=== PATIENT | male | born 1970 | race Hispanic/Latino ===

== ENCOUNTER 2018-09-02 08:07 | Observation (INO) | payer BC ==
[~2018-09-02] VITALS: Ht 180.3 cm; Wt 106.6 kg
--- NOTE | 2018-09-02 08:15 | NUR ---
PT AMBULATORY FROM TRIAGE WITH STEADY GAIT. C/O LEFT ARM NUMBNESS AND PAIN. STATES HAS BEEN INTERMITTENT FOR YEARS. 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 DENIES CHEST PAIN. NO NEUROLOGICAL DEFICITS.
[2018-09-02 09:10] LABS: BASOPHILS % 0.7 % (0.0-1.0); EOSINOPHILS # (AUTO) 0.3 (0.0-0.4); EOSINOPHILS % 4.7 % (0.0-6.0); HEMOGLOBIN 14.8 g/dL (14.0-18.0); LYMPHOCYTES % 33.6 % (18.0-39.1); MEAN CORPUSCULAR HEMOGLOBIN 31.4 pg (28-32); MEAN CORPUSCULAR HGB CONC 36.1 g/dL (31-35); MONOCYTES # (AUTO) 0.8 (0.2-0.8); MONOCYTES % 12.5 % (4.4-11.3); NEUTROPHILS # (AUTO) 2.9 (2.1-6.9); NEUTROPHILS % 48.2 % (38.7-80.0); PLATELET COUNT 180 x10e3/uL (140-360); RED BLOOD COUNT 4.71 x10e6/uL (4.3-5.7); RED CELL DISTRIBUTION WIDTH 12.2 % (11.7-14.4)
[2018-09-02 09:21] LABS: INR 0.81; PARTIAL THROMBOPLASTIN TIME 28.7 seconds (23.8-35.5); PROTHROMBIN TIME 11.6 seconds (11.9-14.5)
[2018-09-02 09:22] LABS: BILIRUBIN,URINE NEGATIVE (NEGATIVE); CLARITY,URINE SL CLOUDY (CLEAR); COLOR,URINE YELLOW (YELLOW); KETONES,URINE NEGATIVE (NEGATIVE); LEUKOCYTE ESTERASE ,URINE NEGATIVE (NEGATIVE); NITRITE,URINE NEGATIVE (NEGATIVE); PROTEIN,URINE DIPSTICK 1+ (NEGATIVE); URINE UROBILINOGEN 0.2 mg/dL (0.2 - 1)
[2018-09-02 09:32] LABS: ALANINE AMINOTRANSFERASE 37 IU/L (0-55); ALBUMIN 3.7 g/dL (3.5-5.0); ALBUMIN/GLOBULIN RATIO 1.2 (0.8-2.0); ALKALINE PHOSPHATASE 102 IU/L (40-150); BLOOD UREA NITROGEN 24 mg/dL (7-26); BUN/CREATININE RATIO 21 (6-25); CALCIUM 9.1 mg/dL (8.4-10.2); CARBON DIOXIDE 22 mmol/L (22-29); CHLORIDE 107 mmol/L (98-107); CREATINE KINASE 517 IU/L (30-200); CREATININE, SERUM 1.15 mg/dL (0.72-1.25); EST GLOMERULAR FILTRATION RATE > 60 ML/MIN (60-); GLUCOSE 121 mg/dL (74-118); SODIUM 137 mmol/L (136-145)
[2018-09-02 09:41] LABS: RBC,URINE 0-5 /HPF (0-5)
[2018-09-02 09:42] LABS: BACTERIA,URINE FEW /HPF; EPITHELIAL CELLS,URINE RARE /LPF
--- NOTE | 2018-09-02 09:48 | Diagnostic Imaging Report ---
EXAM: CHEST SINGLE (PORTABLE), AP Portable DATE: 09/02/2018 Time stamp on exam: 9:09 AM INDICATION: Chest pain with left arm tingling COMPARISON: None FINDINGS: LINES/TUBES: None LUNGS: No consolidations or edema. PLEURA: No effusions or pneumothorax. HEART AND MEDIASTINUM: Normal size and contour. BONES AND SOFT TISSUES: No acute findings. IMPRESSION: No acute thoracic abnormality. Signed by: Dr. Ye Gil DO on 09/02/2018 9:44 AM
--- NOTE | 2018-09-02 09:49 | Diagnostic Imaging Report ---
History: Left arm tingling Comparison studies: None Technique: Axial images were obtained from the skull base to the vertex. Coronal and sagittal reconstructions obtained from the axial data. Dose modulation, iterative reconstruction, and/or weight based adjustment of the mA/kV was utilized to reduce the radiation dose to as low as reasonably achievable. Findings: Scalp/skull: No abnormalities. No fractures, blastic or lytic lesions. Extra-axial spaces: No masses. No fluid collections. Brain sulci: Appropriate for age. Ventricles: Normal in size and configuration. No hydrocephalus. Parenchyma: Few subtle white matter hypodensities right frontal juxtacortical superior frontal gyrus, left corpus callosum anterior body and left splenium, nonspecific. No masses, hemorrhage, acute or chronic cortical vascular insults. Sellar/suprasellar region: No abnormalities Craniocervical junction: Patent foramen magnum. No Chiari one malformation. Atherosclerotic calcifications of the carotid siphons and vertebral arteries IMPRESSION: No acute abnormalities. Few subtle hypodensities of the white matter, nonspecific, could be seen in demyelination or minimal chronic microvascular ischemic changes, MRI of the brain could be helpful for further evaluation. . Signed by: DR Julian Dumont M.D. on 09/02/2018 9:46 AM
[2018-09-02] MEDS ORDERED: ASPIRIN 81 MG CHEW TAB PO ONE (10:21)
--- OUTSIDE RECORDS SUMMARY | 2018-09-02 10:38 | XMS REPORT ---
Author [facility] Address Unknown Phone Unavailable Care Team Providers Care Ash Collector Name Role Phone Castro RIOS Unavailable Unavailable Problems This patient has no known problems. Allergies, Adverse Reactions, Alerts This patient has no known allergies or adverse reactions. Medications This patient has no known medications. Results Test Description Test Time Test Comments Text Results Atomic Results Result Comments CHEST SINGLE (PORTABLE) 2018-09-02 09:43:00 [place] [id number] Patient Name: WILNER LEE MR #: [id number] : 1970 Age/Sex: 47/M Req #: [id number] [facility] Physician: Ordered by: JEWEL RIOS MD Report #: [id number] Location: ER Room/Bed: Procedure: [id number] DX/CHEST SINGLE (PORTABLE) Exam Date: 09/02/18 Exam Time: 909 REPORT STATUS: Signed EXAM: CHEST SINGLE (PORTABLE), AP Portable DATE: Time stamp on exam: 9:09 AM INDICATION: Chest pain with left arm tingling COMPARISON: None FINDINGS: LINES/TUBES: None LUNGS: No consolidations or edema. PLEURA: No effusions or pneumothorax. HEART AND MEDIASTINUM: Normal size and contour. BONES AND SOFT TISSUES: No acute findings. IMPRESSION: No acute thoracic abnormality. Signed by: Dr. Joceline Gil DO on 09/02/2018 9:44 AM Dictated By: JOCELINE GIL DO 3 Transcribed By: DANIEL on 09/02/18943 COPY TO: JEWEL RIOS MD CT BRAIN WO 2018-09-02 09:37:00 [place] [id number] Patient Name: WILNER LEE MR #: [id number] : 1970 Age/Sex: 47/M Req #: [id number] Adm Physician: Ordered by: JEWEL RIOS MD Report #: [id number] Location: ER Room/Bed: Procedure: [id number] CT/CT BRAIN WO Exam Date: 09/02/18 Exam Time: 09 REPORT STATUS: Signed History: Left arm tingling Comparison studies: None Timbo hnique: Axial images were obtained from the skull base to the vertex. Coronal and sagittal reconstructions obtained from the axial data. Dose modulation, iterative reconstruction, and/or weight based adjustment of the mA/kV was utilized to reduce the radiation dose to as low as reasonably achievable. Findings: Scalp/skull: No abnormalities. No fractures, blastic or lytic lesions. Extra-axial spaces: No masses. No fluid collections. Brain sulci: Appropriate for age. Ventricles: Normal in size and configuration. No hydrocephalus. Parenchyma: Few subtle white matter hypodensities right frontal juxtacortical superior frontal gyrus, left corpus callosum anterior body and left splenium, nonspecific. No masses, hemorrhage, acute or chronic cortical vascular insults. Sellar/suprasellar region: No abnormalities Craniocervical junction: Patent foramen magnum. No Chiari one malformation. Atherosclerotic calcifications of the carotid siph ons and vertebral arteries IMPRESSION: No acute abnormalities. Few subtle hypodensities of the white matter, nonspecific, could be seen in demyelination or minimal chronic microvascular ischemic changes, MRI of the brain could be helpful for further evaluation. . Signed by: DR Julian Dumont M.D. on 09/02/2018 9:46 AM Dictated By: JULIAN MACKEY MD 5 Transcribed By: DANIEL on 09/02/18945 COPY TO: JEWEL RIOS MD
[2018-09-02] MEDS ORDERED: DEXTROSE 50% SYRINGE 50 ML IV PRN (10:45)
--- NOTE | 2018-09-02 11:18 | NUR ---
report from María, patient to arrive on telemetry alert and oriented on stretcher.
[2018-09-02] MEDS: SODIUM CHLORIDE 0.9% 1000ML 1,000 ML IV SCH ×3 (11:25→20:37)
[2018-09-02] MEDS: INSULIN LISPRO 100 UNIT/1 ML 3ML VIAL SQ SCH ×3 (11:30→20:36)
[2018-09-02 11:59] VITALS: BP 132/82
[2018-09-02 12:22] VITALS: BP 132/84
[2018-09-02 12:23] VITALS: BP 132/84
[2018-09-02] MEDS ORDERED: ACETAMINOPHEN 325 MG TAB PO PRN (15:00)
[2018-09-02 16:30] VITALS: BP 116/72
[2018-09-02 17:19] LABS: CREATINE KINASE 371 IU/L (30-200)
--- NOTE | 2018-09-02 17:39 | Consultation ---
DATE OF CONSULTATION: Cardiology consultation REASON FOR CONSULTATION: Elevated biomarkers. HISTORY OF PRESENT ILLNESS: This is a 47-year-old man with history of hyperlipidemia and diabetes mellitus, who presented to the emergency department with left arm numbness, discomfort, paresthesias, and shoulder pain. 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 He also reports occasional episodes of chest discomfort. However, these occur at rest and with a supine position rather than true exertional symptoms. REVIEW OF SYSTEMS: A 12-point review of system was conducted, is negative otherwise stated above in the HPI. PAST MEDICAL HISTORY: Hyperlipidemia and diabetes mellitus. PAST SURGICAL HISTORY: None reported. FAMILY HISTORY: No premature coronary artery disease or sudden cardiac . SOCIAL HISTORY: No illicit drug, alcohol, or tobacco use. ALLERGIES: NO KNOWN DRUG ALLERGIES. MEDICATIONS: See medication reconciliation form. PHYSICAL EXAMINATION: VITAL SIGNS: Temperature is 97.3, heart rate 79, respirations are 20, blood pressure is 131/94, and oxygen saturation 100% on room air. GENERAL: Well appearing, well built, no apparent distress. Alert and oriented x3. HEAD: Normocephalic, atraumatic. Eyes, the extraocular muscles are intact. Conjunctiva clear. NECK: No JVD. No bruits. CARDIOVASCULAR: Regular rate and rhythm. LUNGS: Clear to auscultation bilaterally. No wheezing or rales. ABDOMEN: Soft, nontender, nondistended. EXTREMITIES: No clubbing, cyanosis, or edema. VASCULAR: 2+ pulses. SKIN: Warm, dry, intact. NEUROLOGIC: No focal deficits noted. Cranial nerves grossly intact. PSYCHIATRIC: Normal mood and affect. LABORATORY DATA: All laboratory data reviewed. Creatinine 1.1, glucose 121, AST 40, and ALT 37. Creatine kinase is 517. CK-MB is 7.2. Troponin I is less than 0.001. A 12-lead electrocardiogram shows normal sinus rhythm. Chest x-ray shows no acute cardiopulmonary abnormality. IMPRESSION: 1. Left arm paresthesias. 2. Rhabdomyolysis. 3. Diabetes mellitus. 4. Hyperlipidemia. RECOMMENDATIONS: The patient's elevated biomarkers are likely related to mild rhabdomyolysis rather than acute coronary syndrome. We will check a 2D echocardiogram. Recommend additional set of cardiac biomarkers 6 hours apart. If these were within normal limits, he may be discharged from a cardiovascular standpoint with outpatient stress testing. DO JOLANTA Kirkland/MARIO /[id number]
[2018-09-02] MEDS ORDERED: TYLENOL325 MG PO (18:42)
[2018-09-02] MEDS ORDERED: NOVOLOG100 UNITS1 (18:42)
[2018-09-02] MEDS ORDERED: LIPITOR20 MG (18:42)
[2018-09-02] MEDS ORDERED: VIAGRA25 MG (18:42)
[2018-09-02] MEDS ORDERED: METFORMIN HCL500 MG PO (18:42)
[2018-09-02] MEDS ORDERED: GLIMEPIRIDE4 MG PO (18:42)
[2018-09-02] MEDS ORDERED: LANTUS 3ML100 UNITS/ SC (18:42)
[2018-09-02] MEDS ORDERED: LISINOPRIL10 MG PO (18:42)
[2018-09-02 19:54] VITALS: BP 116/72
[2018-09-02 19:57] VITALS: BP 132/63
[2018-09-02] MEDS ORDERED: ZOLPIDEM TARTRATE 10 MG TAB PO PRN (21:00)
--- NOTE | 2018-09-02 21:25 | History and Physical ---
HISTORY OF PRESENT ILLNESS: Richard Salmon is a 47-year-old male with past medical history positive for diabetes mellitus. The patient came with numbness on the left arm. Also, he was complaining of chest pain on and off. He came to the emergency room, he was found to have evidence of high CPK and because of chest pain, he is admitted to rule out coronary artery disease. REVIEW OF SYSTEMS: CARDIOVASCULAR: He has been having chest pains on and off for the last few weeks, not today. No shortness of breath. RESPIRATORY: No shortness of breath. No cough. GASTROINTESTINAL: No nausea, vomiting, or diarrhea. GENITOURINARY: No frequency. No dysuria. ALLERGIES: HE IS NOT ALLERGIC TO ANY MEDICATION. SOCIAL HISTORY: He does not smoke. He does not drink. PAST MEDICAL HISTORY: Positive for diabetes mellitus, type 2. PHYSICAL EXAMINATION: HEART: Showed regular rhythm. Normal S1, S2 sound. LUNGS: Clear bilaterally. ABDOMEN: Soft. EXTREMITIES: Show no evidence of cyanosis or hematoma. NEUROLOGIC: Alert and oriented x3. No motor or sensory deficits. He has minimal sensory deficit in the left upper extremity, but motor strength 5/5 in upper and lower extremities. VITAL SIGNS: Blood pressure is 132/84, temperature , heart rate 71 per minute, respiratory rate 20 per minute, and oxygen saturation 98%. LABORATORY DATA: CBC; white count 5.98, hemoglobin 14.8, hematocrit 41.0, and platelet count 180,000. BMP; sodium 137, potassium 4.0, chloride 107, CO2 22, BUN 24, creatinine 1.15, glucose 121, calcium 9.1, magnesium 2.0. AST 40, ALT 37, alkaline phosphatase 102. Creatine kinase 517, CK-MB 7.20, troponin 0.001. Total protein 6.9, albumin 3.7, globulin 3.2. TSH 1.500. Urinalysis showed some protein and trace blood. IMAGING: Chest x-ray came back negative. CT of the brain showed evidence of few subtle hypodensities in the white matter, nonspecific, could be seen minimal chronic microvascular ischemic changes. MRA of the brain will be held for further evaluation. FINAL IMPRESSION: 1. Numbness in the left arm. 2. Chest pain. 3. Uncontrolled diabetes mellitus, type 2. 4. Rhabdomyolysis. 5. Acute renal failure. 6. Elevated LFTs. PLAN OF TREATMENT: We are going to do an MRI of the head, MRI of the cervical spine. Cardiology consult with Dr. Mitchell for Cardiology. Continue IV fluids. We are going to continue the home medications. Continue to monitor blood sugar before meals and at bedtime. Continue aspirin 81 mg daily. Continue diabetic diet. We are going to continue current IV fluids. Continue monitoring total CK, which was very elevated and we are going to consult Neurology, Dr. Crespo also for the numbness on the left arm. Diet is going to 1800 calories ADA diet. Hugh Irby MD LAS/MODL /[id number]
[2018-09-02 22:56] LABS: CREATINE KINASE 315 IU/L (30-200)
[2018-09-03 00:02] VITALS: BP 127/63
[2018-09-03 05:42] VITALS: BP 115/64
[2018-09-03 05:49] LABS: BASOPHILS % 0.6 % (0.0-1.0); EOSINOPHILS # (AUTO) 0.3 (0.0-0.4); EOSINOPHILS % 5.4 % (0.0-6.0); HEMATOCRIT 39.4 % (38.2-49.6); LYMPHOCYTES % 37.9 % (18.0-39.1); MEAN CORPUSCULAR HEMOGLOBIN 31.6 pg (28-32); MEAN CORPUSCULAR HGB CONC 35.5 g/dL (31-35); MEAN CORPUSCULAR VOLUME 88.9 fL (81-99); MONOCYTES # (AUTO) 0.8 (0.2-0.8); NEUTROPHILS # (AUTO) 2.3 (2.1-6.9); NEUTROPHILS % 41.9 % (38.7-80.0); PLATELET COUNT 167 x10e3/uL (140-360); RED BLOOD COUNT 4.43 x10e6/uL (4.3-5.7); RED CELL DISTRIBUTION WIDTH 12.5 % (11.7-14.4)
[2018-09-03 06:09] LABS: ALANINE AMINOTRANSFERASE 30 IU/L (0-55); ALBUMIN 2.9 g/dL (3.5-5.0); ALBUMIN/GLOBULIN RATIO 0.9 (0.8-2.0); ALKALINE PHOSPHATASE 99 IU/L (40-150); BLOOD UREA NITROGEN 18 mg/dL (7-26); BUN/CREATININE RATIO 17 (6-25); CALCIUM 8.5 mg/dL (8.4-10.2); CARBON DIOXIDE 24 mmol/L (22-29); CHLORIDE 108 mmol/L (98-107); CHOL/HDL RATIO 3.8 (3.9-4.7); CHOLESTEROL 153 MD/DL (0-199); CREATININE, SERUM 1.03 mg/dL (0.72-1.25); EST GLOMERULAR FILTRATION RATE > 60 ML/MIN (60-); GLUCOSE 132 mg/dL (74-118); HDL CHOLESTEROL 40 MG/DL (40-60); LDL CHOLESTEROL 92 MG/DL (60-130); SODIUM 137 mmol/L (136-145); TRIGLYCERIDES 103 MG/DL (0-149)
--- NOTE | 2018-09-03 07:21 | NUR ---
Rcvd patient in report this am. Patient is asleep in bed at this time. No s/s of distress noted
[2018-09-03] MEDS: INSULIN LISPRO 100 UNIT/1 ML 3ML VIAL SQ SCH ×3 (07:30→17:20)
[2018-09-03 08:52] VITALS: BP 121/74
[2018-09-03] MEDS ORDERED: ASPIRIN 81 MG ENTERIC COATED PO SCH (09:00)
--- NOTE | 2018-09-03 09:00 | NUR ---
PT IS AAOX3. SKIN IS WARM, DRY AND INTACT. RESPIRATIONS REGULAR AND UNLABORED. LUNG SOUNDS CLEAR. PT IS ON ROOM AIR 97% SPO2. PERIPHERAL PULSES ARE +2, L DORSAL PULSE IS +2, R DORSAL PULSE IS +1. PT'S ABDOMEN IS SOFT AND NON-TENDER. BED IS IN LOWEST POSITION, BED IS LOCKED, ROOM IS CLEAR OF OBSTRUCTIONS. NO C/O OF CHEST PAIN. NO S/S OF DISTRESS. PT STATES HE IS FEELING A LOT BETTER AND IS READY TO GO HOME. PT WILL HAVE MRI LATER AND THE DAY, PT HAS NO QUESTIONS OR CONCERNS REGARDING MRI
[2018-09-03] MEDS: SODIUM CHLORIDE 0.9% 1000ML 1,000 ML IV SCH ×2 (10:30→16:02)
--- NOTE | 2018-09-03 10:39 | NUR ---
PT C/O NUMBNESS TO LEFT INDEX AND MIDDLE FINGER, THAN BEGAN THIS MORNING UPON WAKING UP. THE PT STATES IT IS RE-OCCURRING THING THAT HAPPENS WHEN WE AWAKENS IN THE MORNING. AND IT HAS NOW SUBSIDED WITH FINGER EXERCISES. THE PT STATED THAT YESTERDAY THE PAIN WAS EXCRUCIATING AND THAT HIS PHYSICIAN WAS NOTIFIED. WILL CONTINUE TO MONITOR
[2018-09-03 10:50] VITALS: BP 121/74
--- NOTE | 2018-09-03 10:50 | NUR ---
SOCIAL WORK INITIAL ASSESSMENT [employer] Nutrition Services Supervisor to bedside to discuss plan of care with patient/family. CM/SW role and care transitions discussed. Anticipated discharge plan discussed along with duration of care. CM/SW discussed patients right to make decisions in care. CM/SW work hours given. 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 Name and number was also written on the patients whiteboard. Patient verbalized understanding of discussion. CM will follow-up with ongoing discharge and transition of care needs.
--- NOTE | 2018-09-03 11:39 | NUR ---
PT OFF UNIT FOR MRI. TELEMETRY BOX LEFT AT BEDSIDE, NO S/S OF DISTRESS. AND NO COMPLAINTS
[2018-09-03 12:13] VITALS: BP 136/77
--- NOTE | 2018-09-03 13:47 | Diagnostic Imaging Report ---
Examination: MRI BRAIN WITHOUT CONTRAST History: Left hand and arm numbness. Paresthesias. Comparison studies: Head CT performed earlier today. Technique: Sagittal T2; axial DWI, FLAIR, GRE or SWI, T1, Coronal FLAIR. Intravenous contrast: None Findings: Scalp: No abnormal signal. No masses. Bone marrow: Normal in signal intensity. Brain volume: Adequate for age. No volume loss. Ventricles: Normal in size and configuration. No hydrocephalus. Extra-axial spaces: No abnormalities. Parenchyma: No abnormal signal intensities. No masses, hemorrhage, acute or chronic vascular insults. Suprasellar and sellar region: No abnormalities. Craniocervical junction: No abnormalities. The foramen magnum is patent. No Chiari malformations. Vessels: Normal flow-voids in the arteries and sinuses. Additional findings:None. IMPRESSION: No abnormalities. Signed by: Dr. Maribel Cantu M.D. on 09/03/2018 1:44 PM
--- NOTE | 2018-09-03 13:52 | Diagnostic Imaging Report ---
Examination: MRI SPINE CERVICAL WITHOUT CONTRAST History: Left hand and arm numbness. Paresthesias. Comparison studies: None Technique: Sagittal T1, T2 and IR, axial T2 and axial gradient echo intravenous contrast: None Findings: Alignment: Normal lordosis. No scoliosis. Cervicomedullary junction: No abnormalities. Patent foramen magnum. Soft tissues: No T2 hyperintense inflammatory changes. Spinal cord: Normal in size and signal from the foramen magnum through T1. Vertebrae: No fractures, infection or neoplasm. Degenerative changes: C1-C2: No abnormalities. C2-C3: No abnormalities. C3-C4: Mild bilateral facet arthropathy. No degenerative disc or foraminal or canal stenosis. C4-C5: Central disc osteophyte protrusion and mild bilateral uncovertebral and facet arthropathy. No foraminal or canal stenosis. C5-C6: Type I Modic change of the inferior endplate of C5. Diffuse disc osteophyte complex and bilateral uncovertebral arthropathy result in moderate bilateral neural foraminal narrowing and mild canal stenosis. C6-C7: Asymmetric to the right disc bulge results in mild right neural foraminal narrowing. No left foraminal or canal stenosis. C7-T1: No abnormalities. IMPRESSION: Degenerative changes from C3-C4 through C6-C7 with moderate bilateral neural foraminal narrowing and mild canal stenosis at C5-C6. Type I Modic change of the inferior endplate of C5. Signed by: Dr. Maribel Cantu M.D. on 09/03/2018 1:49 PM
[2018-09-03] MEDS ORDERED: ACETAMINOPHEN 325 MG TAB PO PRN (15:00)
[2018-09-03] MEDS ORDERED: ASPIR 8181 MG PO (15:30)
[2018-09-03 16:15] VITALS: BP 150/78
--- NOTE | 2018-09-03 17:52 | NUR ---
PT DISCHARGED BY WHEELCHAIR TO PERSONAL AUTO ACCOOMPANIED BY HIS . PT WAS AAOX4 WITH NO S/S OF DISTRESS. NO C/O OF CHEST PAIN. THE PT WAS PROVIDED DISCHARGE INSTRUCTIONS, FOLLOWUP APPOINTMENTS, PRESCRIPTIONS, INFORMATION ON CHEST PAIN AND RHABDO.
[2018-09-04] MEDS ORDERED: GLIMEPIRIDE 2 MG TAB PO SCH (07:30)
[2018-09-04] MEDS ORDERED: INSULIN GLARGINE 100 UNITS/ML VIAL SQ SCH (07:30)
[2018-09-04] MEDS ORDERED: METFORMIN HCL 500 MG TAB PO SCH (07:30)
[2018-09-04] MEDS ORDERED: NON-FORMULARY MEDICATION (Insulin Glargine (Lantus 3ML Pen) 40 UNITS) SC SCH (07:30)
[2018-09-04] MEDS ORDERED: NON-FORMULARY MEDICATION (Glimepiride 4 MG) PO SCH (09:00)
[2018-09-04] MEDS ORDERED: LISINOPRIL 10 MG TAB PO SCH (09:00)
--- NOTE | 2018-09-04 13:54 | Discharge Summary ---
HOSPITAL COURSE: The patient is a 47-year-old male, who has a past medical history positive for diabetes mellitus, came here with some chest pain and numbness in the left upper extremity. He had cardiac enzymes that were negative. His total CPK was high probably because of rhabdomyolysis. Wind Site Manager, Dr. Dodd saw the patient, who recommended for him to have outpatient stress test. So far, the troponins are negative. MRI of the head shows no evidence of any stroke. MRI of the cervical spine shows some evidence of mild cervical spinal stenosis. The patient is going to be going home today. PHYSICAL EXAMINATION: HEART: Showed regular rhythm. Normal S1, S2 sounds. LUNGS: Clear bilaterally. ABDOMEN: Soft. EXTREMITIES: Show no evidence of cyanosis, edema, or trauma. NEUROLOGIC: Alert and oriented x3. No motor or sensory deficits. VITAL SIGNS: Blood pressure 136/77, temperature 97.5, heart rate 74 per minute, respiratory rate is 18 per minute, and oxygen saturation 97% on room air. LABORATORY DATA: On CBC; white blood count 5.36, hemoglobin 14.0, hematocrit 39.4, platelet count 167,000. On the BMP; sodium 137, potassium 4.0, chloride 108, CO2 of 24, BUN 18, creatinine 1.03, glucose 132, calcium 8.5. AST 28, ALT 30, alkaline phosphatase 99. Total CK is 253, troponin 0.014. First set of cardiac enzymes are completely negative. Cholesterol 153, triglyceride 103, LDL cholesterol 92, TSH is normal 1.50. FINAL IMPRESSION: 1. Episode of chest pain, which is resolved. 2. Episode of numbness of the left upper extremity, which is resolved. 3. Hypertension. 4. Diabetes mellitus type 2. PLAN OF TREATMENT: The patient is going to be discharged home with instruction to continue aspirin 81 mg daily. Continue rest of the home medications which include Lipitor 10 mg daily. Continue lisinopril 20 mg daily, metformin 1000 mg schedule, glimepiride 4 mg daily. He is taking 40 units of Lantus at bedtime. I am going to recommend to discontinue the Lipitor because of the rhabdomyolysis. Hugh Irby MD LAS/MODL /[id number]
== END 2018-09-03 17:39 | disposition home or self-care (01) ==
LOC: ER 08:07 → ERHOLD 10:36 → IMCU 12:13
PROVIDERS: ADMIT Internal Medicine; ATTEND Internal Medicine
DX: M62.82 Rhabdomyolysis (principal); R20.2 Paresthesia of skin; G56.02 Carpal tunnel syndrome, left upper limb; G58.8 Other specified mononeuropathies; E11.9 Type 2 diabetes mellitus without complications; E78.5 Hyperlipidemia, unspecified; Z90.49 Acquired absence of other specified parts of digestive tract; Z82.49 Family history of ischemic heart disease and other diseases of the circulatory system; N17.9 Acute kidney failure, unspecified; Z79.4 Long term (current) use of insulin; R07.89 Other chest pain
CPT/HCPCS: 36415 ×2; 70450; 70551; 71045; 72141; 80053 ×2; 80061; 81001; 82550 ×2; 82553 ×2; 83735; 84443; 84484 ×3; 85025 ×2; 85610; 85730; 93005; 93306; 99284; G0378 ×2; J7030 ×2